=== PATIENT | female | born 1980 | race Caucasian/White ===

== ENCOUNTER 2019-12-10 15:44 | Emergency (ER) | payer BC, OTHER ==
--- OUTSIDE RECORDS SUMMARY | 2019-12-10 15:55 | XMS REPORT | Summary of Care ---
:1980 Author Organization [facility] Address [address] [address] Care Team Providers Name Role Phone Tonya Marvin Siegel Primary Care Provider Reason for Visit Reason Comments Fatigue Fatigue since yesterday. Runny nose,headache,and sorethroat for a week. No fever. Encounter Details Date Type Department Care Team Description 11/15/2019 Office Visit [facility] Marvin Castaneda Mild intermittent asthma without complication (Primary Dx); Nitza Siegel MD Viral URI; [address] [facility] Situational anxiety; [place] [address] [place], [place] Psychophysiological insomnia; [phone] [id number] Major depression in remission ([facility]) [phone] Allergies Active Allergy Reactions Severity Noted Date Comments Penicillin G Other 03/07/2015 Not effective documented as of this encounter (statuses as of 11/15/2019) Medications Medication Sig Dispensed Refills Start End Date Status Date ibuprofen (MOTRIN) Take 600 mg by 0 Active 200 MG Oral mouth EVERY TabIndications: Mild SIX HOURS to Moderate Pain NEEDED for Pain. Indications: Mild to Moderate Pain tramadol (ULTRAM) 50 Take 50 mg by 0 Active MG Oral Tab mouth EVERY SIX HOURS NEEDED for Pain. ondansetron (ZOFRAN) Take 4 mg by 30 Tab 3 Active 4 MG Oral Tab mouth EVERY 9 EIGHT HOURS NEEDED (nausea). cyclobenzaprine Take 1 Tab by 30 Tab 0 Active (FLEXERIL) 10 MG mouth EVERY 9 Oral TabIndications: BEDTIME Chronic bilateral NEEDED (pain). low back pain without sciatica albuterol HFA Take 2 Puffs 1 Inhaler 5 Active (VENTOLIN) 108 (90 by inhalation 0 Base) MCG/ACT EVERY FOUR Inhalation Aero Soln HOURS NEEDED (short of breath). trazodone (DESYREL) Take 1 Tab by 30 Tab 3 Active 50 MG Oral Tab mouth EVERY 0 BEDTIME. escitalopram Take 1.5 Tabs 135 Tab 4 11/15/19 Discontinued (LEXAPRO) 20 MG Oral by mouth 9 20 (Provider Tab DAILY. Discontinued) busPIRone (BUSPAR) Take 1 Tab by 180 Tab 3 11/15/19 Discontinued 15 MG Oral Tab mouth TWICE 9 20 (Provider DAILY. Discontinued) documented as of this encounter (statuses as of 11/15/2019) Active Problems Problem Noted Date Complex tear of medial meniscus of right knee as current injury 02/10/2019 Seasonal allergic rhinitis due to pollen 01/08/2017 Recurrent major depression in partial remission 10/17/2014 Overview: [facility] admission 2014 for suicidal ideation and intent Treated fluoxitene as a teen Therapist [facility] documented as of this encounter (statuses as of 11/15/2019) Resolved Problems Problem Noted Date Resolved Date Acute tear lateral meniscus, right, initial encounter 02/10/2019 04/03/2019 Right knee pain 10/29/2014 01/08/2017 Medial meniscus tear 10/29/2014 11/18/2018 Overview: Right sided Knee pain, right 10/22/2014 01/08/2017 documented as of this encounter (statuses as of 11/15/2019) Social History Tobacco Use Types Packs/Day Years Used Date Never Smoker Smokeless Tobacco: Never Used Alcohol Use Drinks/Week oz/Week Comments Yes 2 Standard drinks or equivalent 2.0 Sex Assigned at Date Recorded Not on file documented as of this encounter Last Filed Vital Signs Vital Sign Reading Time Taken Comments Blood Pressure 120/70 11/15/2019 1:49 PM EDT Pulse 72 11/15/2019 1:49 PM EDT Temperature 36.8 11/15/2019 1:49 PM EDT C (98.2 F) Respiratory Rate - - Oxygen Saturation - - Inhaled Oxygen Concentration - - Weight 88.9 kg (196 lb) 11/15/2019 1:49 PM EDT Height 160 cm (5' 3") 11/15/2019 1:49 PM EDT Body Mass Index 34.72 11/15/2019 1:49 PM EDT documented in this encounter Patient Instructions Patient InstructionsMarvin Castaneda MD - 11/15/2019 1:40 PM EDTViral sinus infection There are many over the counter cough medications. I recommend the followin. Robitussin DM 2. Mucinex DM 3. Dayquil and Nyquil. Use trazodone 1-2 at bedtime for sleep Albuterol metered dose inhaler four times daily As needed short of breath Stay off escitalopram and buspar documented in this encounter Progress Notes Marvin Castaneda MD - 11/15/2019 1:40 PM EDT PATIENT: Leda Bautista : 1980 DATE OF SERVICE: 11/15/2019 CHIEF COMPLAINT: Chief Complaint Patient presents with ? Fatigue Fatigue since yesterday. Runny nose,headache,and sorethroat for a week. No fever. Subjective HISTORY OF PRESENT ILLNESS: Leda Bautista is a 39-y.o. female. HPI Clear nasal congestion and post nasal drip dry cough for 5 days mild asthma symptoms of wheeze no shortness of breath no chest pain no fever no high risk travel or known COVID exposure Using no over the counter medications She has remote history exercise Induced asthma no tobacco use No colored nasal drainage She has poor sleep with difficulty falling asleep and anxiety she stopped selective serotonin receptor inhibitor and buspar several months ago and feels the depression is now in remission Patient Active Problem List Diagnosis ? Recurrent major depression in partial remission ? Seasonal allergic rhinitis due to pollen ? Complex tear of medial meniscus of right knee as current injury No family history on file. Current Outpatient Medications Medication Sig ? albuterol HFA (VENTOLIN) 108 (90 Base) MCG/ACT Inhalation Aero Soln Take 2 Puffs by inhalation EVERY FOUR HOURS NEEDED (short of breath). ? cyclobenzaprine (FLEXERIL) 10 MG Oral Tab Take 1 Tab by mouth EVERY BEDTIME NEEDED (pain). ? ibuprofen (MOTRIN) 200 MG Oral Tab Take 600 mg by mouth EVERY SIX HOURS NEEDED for Pain. Indications: Mild to Moderate Pain ? ondansetron (ZOFRAN) 4 MG Oral Tab Take 4 mg by mouth EVERY EIGHT HOURS NEEDED (nausea). ? tramadol (ULTRAM) 50 MG Oral Tab Take 50 mg by mouth EVERY SIX HOURS NEEDED for Pain. ? trazodone (DESYREL) 50 MG Oral Tab Take 1 Tab by mouth EVERY BEDTIME. No current facility-administered medications for this visit. Allergies Allergen Reactions ? Penicillin G Other Not effective Social History Socioeconomic History ? Marital status: Single Spouse name: Not on file ? Number of children: Not on file ? Years of education: Not on file ? Highest education level: Not on file Occupational History ? Not on file Social Needs ? Financial resource strain: Not on file ? Food insecurity Worry: Not on file Inability: Not on file ? Transportation needs Medical: Not on file Non-medical: Not on file Tobacco Use ? Smoking status: Never Smoker ? Smokeless tobacco: Never Used Substance and Sexual Activity ? Alcohol use: Yes Alcohol/week: 2.0 standard drinks Types: 2 Standard drinks or equivalent per week ? Drug use: No ? Sexual activity: Not Currently Lifestyle ? Physical activity Days per week: Not on file Minutes per session: Not on file ? Stress: Not on file Relationships ? Social connections Talks on phone: Not on file Gets together: Not on file Attends nondenominational service: Not on file Active member of club or organization: Not on file Attends meetings of clubs or organizations: Not on file Relationship status: Not on file ? Intimate partner violence Fear of current or ex partner: Not on file Emotionally abused: Not on file Physically abused: Not on file Forced sexual activity: Not on file Other Topics Concern ? Back Care Not Asked ? Bike Helmet Not Asked ? Blood Transfusions Not Asked ? Caffeine Concern No ? Exercise Yes Comment: walks most days ? Hobby Hazards Not Asked ? International Travel Not Asked ? Service Not Asked ? Occupational Exposure Not Asked ? Seat Belt Not Asked ? Self-Exams Not Asked ? Sleep Concern Not Asked ? Special Diet No ? Stress Concern Not Asked ? Weight Concern No Social History Narrative Lives in [facility] with daughter and with partner who has a disabily Occupation: educator and instructor of Wireless Generation at [employer] Lives with daughter never iFlipd Grew up in [facility] and [facility] no ear symptoms no gastro-intestinal symptoms Objective PHYSICAL EXAM: VITALS: BP 120/70 | Pulse 72 | Temp 98.2 F (36.8 C) | Ht 5' 3" (1.6 m) | Wt 196 lb (88.9 kg) | BMI 34.72 kg/m Body mass index is 34.72 kg/m . Physical Exam There is a cobblestone appearance to the posterior oropharynx. Nasal exam - mucosal congestion, mucosal erythema and clear rhinorrhea. Chest is clear, no wheezing or rales. Normal symmetric air entry throughout both lung gaspar. No chest wall deformities or tenderness. Mental status exam; she is alert, orient to time, person and place. Normal thought content, speech, affect, mood and dress are noted. ASSESSMENT / IMPRESSION: ICD-9-CM ICD-10-CM 1. Mild intermittent asthma without complication ANA metered dose inhaler as needed 493.90 J45.20 2. Viral URI reassurance over the counter medications 465.9 J06.9 3. Situational anxiety trazodone low dose at bedtime as needed 300.09 F41.8 4. Psychophysiological insomnia 307.42 F51.04 5. Major depression in remission (HCC) stay off selective serotonin receptor inhibitor and buspar 296.25 F32.5 Patient Instructions Viral sinus infection There are many over the counter cough medications. I recommend the followin. Robitussin DM 2. Mucinex DM 3. Dayquil and Nyquil. Use trazodone 1-2 at bedtime for sleep Albuterol metered dose inhaler four times daily As needed short of breath Stay off escitalopram and buspar : Marvin Castaneda MD 11/15/2019 14:25 documented in this encounter Plan of Treatment Health Maintenance Due Date Last Done Comments PNEUMOCOCCAL 0-64 YRS (1 of 1984 - PPSV23) DTaP/Tdap/Td Vaccines ( - 1989 Tdap) INFLUENZA VACCINE (#1) 2019 DIABETES SCREENING 12/03/2019 12/02/2018, 02/18/2018, 03/29/2017 MAMMOGRAM (SCREENING) 12/03/2019 12/02/2018 DEPRESSION SCREENING 05/26/2020 05/26/2019 PAP SMEAR 12/21/2021 12/21/2018 LIPID DISORDER SCREENING 12/03/2023 12/02/2018 HEPATITIS A IMMUNIZATION Aged Out No longer eligible based SERIES on patient's age to complete this topic HPV IMMUNIZATION SERIES Aged Out No longer eligible based on patient's age to complete this topic MENINGOCOCCAL VACCINE IMM Aged Out No longer eligible based on patient's age to complete this topic documented as of this encounter Goals Goal Patient Goal Associated Recent Patient-Stated? Author Type Problems Progress Depression Depression No Tonya, screen (PHQ-9) Marvin Siegel total score < 5 Note: This is an individualized treatment (depression) goal for Leda Bautista: Displayed above is your goal for a depression screening (PHQ-9) score that would indicate good control of your depression. Keep a regular sleep schedule Lifestyle Marvin William MD Note: This is an individualized lifestyle goal for Leda Mary Bautista: Please maintain a regular sleep schedule. This may help with some symptoms of depression. Take all prescribed medications as Self-management Marvin William MD directed Note: This is an individualized self-management goal for Leda Bautista: Please take all prescribed medications as directed. 1. Do not skip doses. If you cannot afford your medications, talk with your doctor. 2. Use a pill reminder system such as a pill box if needed. Your pharmacist can help you with this. 3. Contact your Pharmacy 5 days before your medication runs out. If you cannot take your medications for any reasons, talk with your doctor. 4. Please bring all of your medication bottles and inhalers (or a list of all your medications/inhalers) with you to every visit. Potential barriers to meeting all of your care plan goals will continue to be addressed on an ongoing basis. documented as of this encounter Results Not on filedocumented in this encounter Visit Diagnoses Diagnosis Mild intermittent asthma without complication Unspecified asthma Viral URI Acute upper respiratory infections of unspecified site Situational anxiety Other anxiety states Psychophysiological insomnia Persistent disorder of initiating or maintaining sleep Major depression in remission (HCC) Major depressive disorder, single episode in full remission documented in this encounter (Home) [place] [address] documented as of this encounter
--- NOTE | 2019-12-10 15:57 | ED ---
Headache - HPI Summary HPI Summary: 39 y/o F with hx migraines presenting to [facility] c/o frontal migraine, nausea/ vomiting, diffuse weakness, blurred vision, disorientation, shakiness, photophobia, hot/cold, constipation, intermittent mild abdominal pain starting after she woke up today. She typically has vomiting with her migraines. Last migraine 1 month ago. She tried taking Tylenol today but vomited. She denies fever, neck pain or stiffness. She is not followed by neurology. Initially rated 9/10. Now rated 6/10. Symptoms aggravated by light, sound, smell. Symptoms alleviated by nothing. Medications reviewed. Takes progesterone. Occasionally takes daily vitamins. Allergies noted. No ETOH or tobacco use. Occasional marijuana use. - History Of Current Complaint Chief Complaint: EDHeadache Stated Complaint: NAUSEA/VOMITING/MIGRAINE PER PT Time Seen by Provider: 12/10/19 15:55 Hx Obtained From: Patient Onset/Duration: Started hours ago, Still Present Initially Headache Was: Initial Pain Scale(0-10)= - 9, Severe Currently Pain Is: Current Pain Scale(0-10)= - 6, Moderate Timing: Constant Location of Headache: Frontal Aggravating Factor: Other - light, sound, smell Allevating Factors: Nothing - Allergies/Home Medications Allergies/Adverse Reactions: Allergies Allergy/AdvReac Type Severity Reaction Status Date / Time Penicillins Allergy GI Upset Verified 12/10/19 15:48 Home Medications: Home Medications Aspirin 81 mg CHEW TAB* [Aspirin Low Dose TAB*] 81 mg PO DAILY 04/15/19 [ History Confirmed 04/26/19] Docusate CAP* [Colace Cap*] 100 mg PO DAILY 04/15/19 [History Confirmed 04/26/19 ] Escitalopram * [Lexapro *] 20 mg PO DAILY 04/15/19 [History Confirmed 04/26/19] Hydrocodone/Acetaminophen [Hydrocodone/Acetaminophen 5-325 mg] 1 tab PO Q6H PRN 04/15/19 [History Confirmed 04/26/19] Ibuprofen TAB* [Motrin TAB* 600 MG] 600 mg PO Q6H PRN 04/15/19 [History Confirmed 04/26/19] Ondansetron ODT TAB* [Zofran 4 MG Odt TAB*] 4 mg PO Q6HR PRN 04/15/19 [History Confirmed 04/26/19] Tramadol HCl 50 mg PO Q6H PRN 04/15/19 [History Confirmed 04/26/19] busPIRone TAB* [Buspar TAB *] 15 mg PO BID 04/15/19 [History Confirmed 04/26/19] celeCOXIB CAP* [CeleBREX CAP*] 200 mg PO BID 04/15/19 [History Confirmed ] PMH/Surg Hx/FS Hx/Imm Hx Endocrine/Hematology History: Denies: Hx Diabetes Cardiovascular History: Denies: Hx Hypertension Neurological History: Reports: Hx Headaches, Hx Migraine - Surgical History Surgery Procedure, Year, and Place: arthroscopy to right knee-03/2019 Infectious Disease History: No Infectious Disease History: Denies: Traveled Outside the [place] in Last 30 Days - Family History Known Family History: Positive: Other - ETOH abuse - Social History Alcohol Use: None Hx Substance Use: Yes Substance Use Type: Reports: Marijuana Hx Tobacco Use: Yes Smoking Status (MU): Former Smoker Review of Systems Positive: Other - shakiness, hot/cold. Negative: Fever Positive: Photophobia, Blurred Vision Positive: Abdominal Pain, Vomiting, Nausea, Other - constipation Musculoskeletal: Negative - neck pain or stiffness Neurological/Mental Status: Other - disorientation Positive: Headache, Weakness All Other Systems Reviewed And Are Negative: Yes Physical Exam - Summary Physical Exam Summary: Constitutional: Well-developed, Well-nourished, Alert. Patient appears to be in discomfort. Skin: Warm, Dry HENT: Normocephalic; Atraumatic Eyes: Conjunctiva normal Neck: Musculoskeletal ROM normal neck. (-) JVD, (-) Stridor, (-) Tracheal deviation Cardio: Rhythm regular, rate normal, Heart sounds normal; Intact distal pulses; Radial pulses are 2+ and symmetric. (-) Murmur Pulmonary/Chest wall: Effort normal. (-) Respiratory distress, (-) Wheezes, (-) Rales Abd: Soft, (-) tenderness, (-) Distension, (-) Guarding, (-) Rebound Musculoskeletal: (-) Edema Lymph: (-) Cervical adenopathy Neuro: Alert, Oriented x3, Strength normal, Cranial nerves II-XII are grossly intact. (-) Dysmetria, (-) Nystagmus, (-) Ataxia by finger to nose testing, (-) Sensory deficit. Psych: Mood and affect Normal Triage Information Reviewed: Yes Vital Signs On Initial Exam: Initial Vitals Temp Pulse Resp BP Pulse Ox 97.6 F 86 16 133/90 99 12/10/19 15:47 12/10/19 15:47 12/10/19 15:47 12/10/19 15:47 12/10/19 15:47 Vital Signs Reviewed: Yes Procedures - Sedation Patient Received Moderate/Deep Sedation with Procedure: No Diagnostics - Vital Signs Vital Signs Temp Pulse Resp BP Pulse Ox 12/10/19 15:47 97.6 F 86 16 133/90 99 - Laboratory Lab Statement: Any lab studies that have been ordered have been reviewed, and results considered in the medical decision making process. Re-Evaluation - Re-Evaluation First Eval Re-Evaluation Time: 17:31 Change: Improved - she feels much better and agrees to d/c Headache Course/Dx - Course Course Of Treatment: Patient is here with her typical migraine. Patient states she has migraines chronically and they usually occur around the time of her menses. Patient has no neurologic deficits on exam. Patient was given IV fluids, Compazine, Benadryl, Toradol with last improvement in her headache and vomiting. Patient was discharged with a referral for neurology. - Diagnoses Provider Diagnoses: Migraine, Vomiting Discharge ED - Sign-Out/Discharge Documenting (check all that apply): Patient Departure - Discharge Plan Condition: Stable Disposition: HOME Patient Education Materials: Migraine Headache (ED) Referrals: Marvin Castaneda MD [Primary Care Provider] - Sourav Ludwig MD [Medical Doctor] - Additional Instructions: Call Dr. Ludwig's office to set up an appointment if you want help with your migraines. Please return to the Emergency Department for any new or worsening symptoms such as slurred speech, one sided weakness, or one sided numbness. - Billing Disposition and Condition Condition: STABLE Disposition: Home - Attestation Statements Document Initiated by Scribe: Yes Documenting Scribe: Aditi Day Provider For Whom Juliet is Documenting (Include Credential): Jorge Pizarro MD Scribe Attestation: Aditi Garcia, scribed for Jorge Pizarro MD on 12/10/19 at 1744. Scribe Documentation Reviewed: Yes Provider Attestation: The documentation as recorded by the scribe, Aditi Day accurately reflects the service I personally performed and the decisions made by me, Jorge Pizarro MD Status of Juliet Document: Viewed
[2019-12-10] MEDS ORDERED: Ketorolac INJ* 30 MG/ML 1 ML VIAL IV ONE (16:03)
[2019-12-10] MEDS ORDERED: diPHENhydraMINE IV* 50 MG/ML 1 ml VIAL (BENADRYL) IV ONE (16:03)
[2019-12-10] MEDS ORDERED: NS 0.9% 1000 ML** 1,000 ML IV ONE (16:03)
[2019-12-10] MEDS ORDERED: PROCHLORPERAZINE INJ 5 MG/ML 2 ML VIAL IV ONE (16:04)
[2019-12-10 18:20] VITALS: BP 94/58
== END 2019-12-10 18:19 | disposition home or self-care (01) ==
LOC: ED 15:44
DX: G43.909 Migraine, unspecified, not intractable, without status migrainosus (principal); R11.2 Nausea with vomiting, unspecified; R53.1 Weakness; H53.8 Other visual disturbances; Z79.82 Long term (current) use of aspirin; Z88.0 Allergy status to penicillin; Z87.891 Personal history of nicotine dependence
CPT/HCPCS: 96361; 96374; 96375; 99282; J0780; J1200; J1885